=== PATIENT | female | born 1985 | race Caucasian/White ===

== ENCOUNTER 2019-11-15 09:52 | Day surgery (SDC) | payer OTHER ==
[2019-11-15] VITALS (15 sets, daily range): BP systolic 90–107; BP diastolic 43–70
[~2019-11-15] VITALS: Ht 166.4 cm; Wt 67.9 kg
[2019-11-15] MEDS: CEFTRIAXONE SODIUM 1 GM IVP SCH ×2 (10:30→11:50)
[2019-11-15] MEDS ORDERED: LACTATED RINGERS 1000ML 1,000 ML IV ONE (11:28)
[2019-11-15] MEDS ORDERED: PROPOFOL 10 MG/ML 20ML VIAL IV ONE (11:38)
[2019-11-15] MEDS ORDERED: LIDOCAINE PF 2% 5ML ABBOJECT ONE (11:38)
[2019-11-15] MEDS ORDERED: ONDANSETRON HCL 4 MG/2 ML VIAL ONE (11:38)
[2019-11-15] MEDS ORDERED: MIDAZOLAM HCL 1 MG/ML 2ML VIAL ONE (11:38)
[2019-11-15] MEDS ORDERED: DEXAMETHASONE SOD PHOSPHATE 10MG/ML 1ML VIAL ONE (11:38)
[2019-11-15] MEDS ORDERED: FENTANYL CITRATE PF 50 MCG/1 ML 2ML VIAL ONE (11:40)
[2019-11-15] MEDS ORDERED: EPHEDRINE SULFATE 50 MG/ML AMPULE ONE (11:50)
[2019-11-15] MEDS ORDERED: ROCURONIUM 10MG/1ML SYR 10 MG/ML ML ONE (11:52)
[2019-11-15] MEDS ORDERED: ALBU18HF7 IH (12:14)
--- NOTE | 2019-11-15 12:37 | NUR ---
antibiotics was taken to or for surgery
[2019-11-15] MEDS ORDERED: KETOROLAC TROMETHAMINE 15MG/ML ONE (13:18)
[2019-11-15] MEDS ORDERED: MEPERIDINE-PF 25 MG/ML SYG ONE (13:29)
== END 2019-11-15 14:45 | disposition home or self-care (01) ==
LOC: DAH 09:52
PROVIDERS: ATTEND Urology
DX: N20.0 Calculus of kidney (principal); Z98.890 Other specified postprocedural states
CPT/HCPCS: 36415; 50590; 84703; A4215; A4221; A4222; A4223; A4600; A4663; J0696; J1100; J1885; J2001; J2175; J2250; J2405; J2704; J3010; J3490; J7120